=== PATIENT | female | born 1995 | race Caucasian/White ===

== ENCOUNTER 2018-01-04 15:06 | Emergency (ER) | payer OTHER ==
[~2018-01-04] VITALS: Ht 177.8 cm; Wt 52.0 kg
[2018-01-04 15:09] VITALS: TEMP 36.4; Ht 177.8 cm; Wt 52.0 kg
[2018-01-04 15:57] LABS: INFLUENZA B ANTIGEN Neg for Influ B (NEG)
[2018-01-04] MEDS ORDERED: SODIUM CHLORIDE 0.9% 1000ML 1,000 ML IV STA (16:28)
[2018-01-04 17:20] LABS: BASO % 0.2 %; BASO ABS # 0.02 K/uL (0-0.2); EOS % 0.6 %; EOS ABS # 0.05 K/uL (0-0.5); HEMOGLOBIN 11.1 g/dL (12.0-16.0); IG# 0.02 K/uL (0.00-0.02); LYMPH % 20.6 %; LYMPH ABS # 1.66 K/uL (1.2-3.4); MEAN CELL VOLUME 75.6 fL (80-100); MEAN CORPUSCULAR HEMOGLOBIN 24.7 pg (25-34); MEAN CORPUSCULAR HGB CONC 32.6 g/dl (32-36); MONO % 6.1 %; MONO ABS # 0.49 K/uL (0.11-0.59); NEUT % 72.3 %; NEUT ABS # 5.81 K/uL (1.4-6.5); PLATELET COUNT 241 K/uL (130-400); RED CELL DISTRIBUTION WIDTH SD 46.4 fL (36.4-46.3); WHITE BLOOD COUNT 8.05 K/uL (4.8-10.8)
[2018-01-04 17:43] LABS: CALCIUM 8.3 mg/dl (8.5-10.1); CREATININE 0.71 mg/dl (0.60-1.20)
--- NOTE | 2018-01-04 19:39 | DIAGNOSTIC IMAGING REPORT ---
PELVIC ULTRASOUND, TRANSVAGINAL HISTORY: r/o ovarian cyst vs ovarian torsion bilateral lower quadrant pain COMPARISON: None. FINDINGS: Uterus: 6.8 x 5.1 x 3.8 cm. No uterine masses. A few small nabothian cysts. Endometrial stripe: 6 mm in thickness. Right ovary: Normal in size and demonstrates normal color flow. Left ovary: Normal in size and demonstrates normal color flow. Miscellaneous:Trace pelvic free fluid. IMPRESSION: No significant abnormality identified within the pelvis. Trace pelvic free fluid. This is likely physiologic. Electronically signed by: Carl Krishnamurthy M.D. 01/04/2018 7:38 PM Dictated Date/Time: 01/04/2018 7:34 PM
--- NOTE | 2018-01-04 20:11 | EMERGENCY ROOM VISIT NOTE ---
History Report prepared by Juan: Emelia Tavares Under the Supervision of: Dr. Rubén Alas M.D. First contact with patient: 16:23 Chief Complaint: ABDOMINAL PAIN Stated Complaint: WEAKNESS Nursing Triage Summary: patient arrivedf via BLS. patient placed in triage. patient was eating lunch with friends. patient got up to use restroom and had sudden onset of feeling hot, shacky, dizzy, nauseated and had generalized lower abdominal pain. hx pcos prehospital. EMS stated they were unable to get a systolic blood pressure above 90. History of Present Illness The patient is a 22 year old female who presents to the Emergency Room with complaints of an episode of near syncope starting [employer]. The patient stood up during lunch today and started feeling hot and faint. She was diaphoretic and dizzy. She felt like she would pass out and had to sit down. She denies any LOC or head injury. She is currently feeling weak. She is having lower back pain and abdominal pain, which she describes as crampy in nature.. She is currently on her period and notes that she typically does get cramps, similar to these. She denies any pain with urination or nausea. She has a history of PCOS. She is not on any medications. She denies any smoking or drug use. She does use alcohol , but none today. She denies any family history of heart problems. She denies any recent travel. She denies any chance of or STD. She was sick 3 days ago with a fever and cough. She denies any hemoptysis. Source of History: patient Onset: [employer] Position: other (global) Quality: other (near syncope) Timing: other (episodic) Associated Symptoms: + diaphoresis, + abdominal pain, + back pain, + weakness, No nausea, No urinary symptoms Note: Pt reports feeling hot, faint, and dizzy. Review of Systems See HPI for pertinent positives and negatives. A total of ten systems were reviewed and were otherwise negative. Past Medical & Surgical Medical Problems: (1) PCOS (polycystic ovarian syndrome) Family History No family history of heart disease. Social History Smoking Status: Never Smoker Occupation Status: [employer] student Physical Exam Vital Signs Date Time Temp Pulse Resp B/P (MAP) Pulse Ox O2 Delivery O2 Flow Rate FiO2 01/04/18 20:12 55 18 112/60 99 Room Air 01/04/18 18:08 50 14 112/60 100 Room Air 01/04/18 17:07 52 16 115/60 95 Room Air 01/04/18 15:09 36.4 48 18 126/77 Physical Exam Physical Exam GENERAL: Hirsutic features. She is oriented to person, place, and time. She appears well-developed and well-nourished. She does not appear distressed. ____ HENT: Exam performed. Head: Normocephalic and atraumatic. Right Ear: External ear normal. No mastoid tenderness. Left Ear: External ear normal. No mastoid tenderness. Mouth/Throat: The oropharynx is clear and moist. No trismus in the jaw. No dental abscesses or uvula swelling. No oropharyngeal exudate or tonsillar abscesses. ____ EYES: Conjunctivae and EOM are normal. Pupils are equal, round, and reactive to light. Right eye exhibits no discharge. Left eye exhibits no discharge. No scleral icterus. ____ NECK: Normal range of motion. Neck supple. No JVD present. No spinous process tenderness present. No carotid bruit present. No rigidity. No tracheal deviation and normal range of motion present. No Brudzinski's sign and no Kernig 's sign noted. ____ CV: Normal rate, regular rhythm, normal heart sounds and intact distal pulses. There is no peripheral edema. Palpable radial pulses bue. ____ PULM/CHEST: Effort normal and breath sounds normal. No respiratory distress. No stridor. She has no wheezes. She has no rales. Chest Wall: She exhibits no tenderness. ____ ABD: The abdomen is soft. Bowel sounds are normal. She has no distension. No mass is present. There is no tenderness. There is no rebound, no guarding, no Grant's sign and no tenderness at McBurney's point. Rovsig negative MUSC/SKEL: Normal range of motion. There is no peripheral edema, tenderness or deformity. LYMPH: No cervical adenopathy. ____ NEURO: She is alert and oriented to person, place, and time. She has normal strength. No cranial nerve deficit or sensory deficit. Coordination and gait normal. GCS eye subscore is 4. GCS verbal subscore is 5. GCS motor subscore is 6. Cerebellar tests wnl. ____ SKIN: Skin is warm and dry. She is not diaphoretic. ____ PSYCH: She has a normal mood and affect. Her behavior is normal. Judgment and thought content normal. ____ Medical Decision & Procedures ER Provider Diagnostic Interpretation: Radiology results as stated below per my review and radiologist interpretation: PELVIC ULTRASOUND, TRANSVAGINAL HISTORY: r/o ovarian cyst vs ovarian torsion bilateral lower quadrant pain COMPARISON: None. FINDINGS: Uterus: 6.8 x 5.1 x 3.8 cm. No uterine masses. A few small nabothian cysts. Endometrial stripe: 6 mm in thickness. Right ovary: Normal in size and demonstrates normal color flow. Left ovary: Normal in size and demonstrates normal color flow. Miscellaneous:Trace pelvic free fluid. IMPRESSION: No significant abnormality identified within the pelvis. Trace pelvic free fluid. This is likely physiologic. Electronically signed by: Carl Krishnamurthy M.D. 01/04/2018 7:38 PM Dictated Date/Time: 01/04/2018 7:34 PM Laboratory Results 01/04/18 16:54 Red Blood Count 4.50, Mean Corpuscular Volume 75.6, Mean Corpuscular Hemoglobin 24.7, Mean Corpuscular Hemoglobin Concent 32.6, Neutrophils (%) (Auto) 72.3, Lymphocytes (%) (Auto) 20.6, Monocytes (%) (Auto) 6.1, Eosinophils (%) (Auto) 0.6, Basophils (%) (Auto) 0.2, Neutrophils # (Auto) 5.81, Lymphocytes # (Auto) 1.66, Monocytes # (Auto) 0.49, Eosinophils # (Auto) 0.05, Basophils # (Auto) 0.02 01/04/18 16:54 Test 01/04/18 15:15 01/04/18 16:49 01/04/18 16:54 01/04/18 18:08 Influenza Type A Antigen Neg for Influ A (NEG) Influenza Type B Antigen Neg for Influ B (NEG) Bedside Glucose 112 mg/dl (70-90) White Blood Count 8.05 K/uL (4.8-10.8) Red Blood Count 4.50 M/uL (4.2-5.4) Hemoglobin 11.1 g/dL (12.0-16.0) Hematocrit 34.0 % (37-47) Mean Corpuscular Volume 75.6 fL (80-100) Mean Corpuscular Hemoglobin 24.7 pg (25-34) Mean Corpuscular Hemoglobin Concent 32.6 g/dl (32-36) Platelet Count 241 K/uL (130-400) Neutrophils (%) (Auto) 72.3 % Lymphocytes (%) (Auto) 20.6 % Monocytes (%) (Auto) 6.1 % Eosinophils (%) (Auto) 0.6 % Basophils (%) (Auto) 0.2 % Neutrophils # (Auto) 5.81 K/uL (1.4-6.5) Lymphocytes # (Auto) 1.66 K/uL (1.2-3.4) Monocytes # (Auto) 0.49 K/uL (0.11-0.59) Eosinophils # (Auto) 0.05 K/uL (0-0.5) Basophils # (Auto) 0.02 K/uL (0-0.2) RDW Standard Deviation 46.4 fL (36.4-46.3) RDW Coefficient of Variation 17.0 % (11.5-14.5) Immature Granulocyte % (Auto) 0.2 % Immature Granulocyte # (Auto) 0.02 K/uL (0.00-0.02) Anion Gap 9.0 mmol/L (3-11) Est Creatinine Clear Calc Drug Dose 102.9 ml/min Estimated GFR () 141.1 Estimated GFR (Non- 121.8 BUN/Creatinine Ratio 11.9 (10-20) Calcium Level 8.3 mg/dl (8.5-10.1) Lipase 186 U/L (73-393) Urine Color YELLOW Urine Appearance CLEAR (CLEAR) Urine pH 7.5 (4.5-7.5) Urine Specific [place] 1.005 (1.000-1.030) Urine Protein NEG (NEG) Urine Glucose (UA) NEG (NEG) Urine Ketones NEG (NEG) Urine Occult Blood 2+ (NEG) Urine Nitrite NEG (NEG) Urine Bilirubin NEG (NEG) Urine Urobilinogen NEG (NEG) Urine Leukocyte Esterase TRACE (NEG) Urine WBC (Auto) 1-5 /hpf (0-5) Urine RBC (Auto) 0-4 /hpf (0-4) Urine Hyaline Casts (Auto) 0 /lpf (0-5) Urine Epithelial Cells (Auto) 20-30 /lpf (0-5) Urine Bacteria (Auto) NEG (NEG) Urine Test NEG (NEG) Laboratory results reviewed by me Medications Administered Medications (Trade) Dose Ordered Sig/Gloria Route Start Time Stop Time Status Last Admin Dose Admin Sodium Chloride 1,000 ml @ 999 mls/hr Q1H1M STAT IV 01/04/18 16:28 01/04/18 17:28 DC 01/04/18 17:07 999 MLS/HR ECG Per My Interpretation Indication: weakness Rate (beats per minute): 53 Rhythm: other (sinus arrhythmia) Findings: other (KS, QRS, QTc wnl, no ST elevation or ST depression) ED Course 1625: The patient was evaluated in room C9. A complete history and physical exam was performed. 1940: VSS. Serial abdominal exams wnl. Labs, EKG, US wnl. Urine negative, urine is contaminated sample, there is blood in the urine, this is most likely due to the patient being on her menstrual cycle. Pt declined pelvic exam. DISCHARGE - Plan of care discussed with patient and questions answered. The patient was given both verbal and printed discharge instructions. The patient verbalized understanding and ability to comply. The patient is to seek outpatient follow up as noted in the discharge instructions. The patient verbalized understanding and ability to comply. The patient is discharged in stable condition. The patient was instructed to return for worsening symptoms. Medical Decision VSS. Serial abdominal exams wnl. Labs, EKG, US wnl. Urine negative, urine is contaminated sample, there is blood in the urine, this is most likely due to the patient being on her menstrual cycle. Pt declined pelvic exam. DISCHARGE - Plan of care discussed with patient and questions answered. The patient was given both verbal and printed discharge instructions. The patient verbalized understanding and ability to comply. The patient is to seek outpatient follow up as noted in the discharge instructions. The patient verbalized understanding and ability to comply. The patient is discharged in stable condition. The patient was instructed to return for worsening symptoms. Medication Reconcilliation Current Medication List: was personally reviewed by me Blood Pressure Screening Patient's blood pressure: Normal blood pressure Blood pressure disposition: Did not require urgent referral Impression Primary Impression: Near syncope Scribe Attestation The scribe's documentation has been prepared under my direction and personally reviewed by me in its entirety. I confirm that the note above accurately reflects all work, treatment, procedures, and medical decision making performed by me. The chart was completed utilizing [employer] Speech voice recognition software. Grammatical errors, random word insertions, pronoun errors, and incomplete sentences are an occasional consequence of this system due to software limitations, ambient noise, and hardware issues. Any formal questions or concerns about the content, text, or information contained within the body of this dictation should be directly addressed to the physician for clarification. Departure Information Dispostion Home / Self-Care Referrals [facility] Forms HOME CARE DOCUMENTATION FORM, IMPORTANT VISIT INFORMATION Patient Instructions ED Near Syncope [facility], [facility]
[2018-01-04 20:12] VITALS: BP 112/60; PULSE 55; O2SAT 99
== END 2018-01-04 20:12 | disposition home or self-care (01) ==
LOC: C.EDB 15:09 → C.EDC 20:12
DX: R55 Syncope and collapse (principal); R10.84 Generalized abdominal pain